=== PATIENT | male | born 1960 | race Caucasian/White ===

== ENCOUNTER → 2023-03-22 | Outpatient (CLI) | payer BC, SELFPAY | END | disposition home or self-care (01) | LOC: LAB 09:16 | PROVIDERS: Referring Provider Nurse Practitioner; Visit Provider Nurse Practitioner | DX: R97.20 Elevated prostate specific antigen [PSA] (principal) | CPT/HCPCS: 36415; 84153 ==

== ENCOUNTER → 2023-03-29 | Outpatient (CLI) | payer BC, SELFPAY ==
--- NOTE | 2023-03-29 | IMM_PTH ---
PATHOLOGY RESULTS PATIENT: ESTER VICTOR LOC: BIPIN U#:[id number] AGE/SX: 62/M ROOM: RE03/29/[address]: Dr. Dorian Sims MD : 1960 BED: DIS: 03/29/2023 SPEC #: [id number] RECD: 03/31/23 13:46 STATUS: TONIA REQ #: [id number] ARELI: 03/29/23 00:[address]: Dorian Sims DEPT: IMMUNOHISTOCHEMISTRY RECD BY: Piedad Fernandez ENTERED: 03/31/23 13:51 SP TYPE: IMMUNO OTHR DR: Dr. London Cummings MD Tissues: PROSTATE RIGHT Procedures: P40 (add) 34BE12 (initial) PHYSICIAN & INSTITUTION [place] [id number] SPECIMEN INFORMATION: Tissue Source: B - Right prostate, [facility] Clinical Info: Elevated PSA Specimen Number: [id number] CPT code: 30765, 59096 METHODOLOGY: Deparaffinized sections of prefer/formalin-fixed tissue or PAP/DQ stained slides are incubated with monoclonal/polyclonal antibodies/oligonucleotide probes. Localization is made via biotin free immunoperoxidase method. Appropriate controls are performed and reacted as expected. Results on target cell population are indicated in the following table: RESULTS: ANTIBODY / CLONE RESULT Block B P40 (BC28) negative 34BE12 (34BE12) negative These tests were developed and their performance characteristics determined by [facility]. They may not have been cleared or approved by the U.S. Food and Drug Administration. The FDA has determined that such clearance or approval is not necessary. The above immunohistochemical/dualISH markers are ordered and reviewed by the Pathologist. INTERPRETATION: B. Right prostate, mid, core biopsy: Adenocarcinoma. BJ:umer 04/01/2023
--- NOTE | 2023-03-29 | PROSBIL_PTH ---
PATHOLOGY RESULTS PATIENT: ESTER VICTOR LOC: BIPIN U#:[id number] AGE/SX: 62/M ROOM: RE03/29/[address]: Dr. Dorian Sims MD : 1960 BED: DIS: 03/29/2023 SPEC #: [id number] RECD: 03/30/23 07:22 STATUS: TONIA LIBBY #: [id number] ARELI: 03/29/23 00:[address]: Dorian Sims DEPT: SURGICAL PATHOLOGY RECD BY: Sheila Bose ENTERED: 03/30/23 07:23 SP TYPE: PROST BX ROGELIO DR: Dr. London Cummings MD Tissues: PROSTATE RIGHT PROSTATE RIGHT PROSTATE RIGHT PROSTATE LEFT PROSTATE LEFT PROSTATE LEFT Procedures: PROSTATE BX HEADER OPERATION: Prostate biopsy PRE-OP DIAGNOSIS: Elevated PSA TISSUE SUBMITTED: A - Right apex, B - Right mid, C - Right base, D - Left apex, E - Left mid, F - Left base MICROSCOPIC DIAGNOSIS A. Right prostate, apex, core biopsy: Prostatic tissue, negative for malignancy. B. Right prostate, mid, core biopsy: Prostatic adenocarcinoma. Kisha grade: 4+4=8 Number of cores involved: 1/2 Proportion of tissue involved: <5% Perineural invasion: Not identified. Greatest tumor length: 0.1 cm Focal high-grade prostatic intraepithelial neoplasia (HGPIN). See comment. C. Right prostate, base, core biopsy: Prostatic adenocarcinoma. Kisha grade: 4+4=8 Number of cores involved: 1/1 Proportion of tissue involved: ~25% Perineural invasion: Not identified. Greatest tumor length: 0.2 cm D. Left prostate, apex, core biopsy: Prostatic tissue, negative for malignancy. E. Left prostate, mid, core biopsy: Prostatic adenocarcinoma. Kisha grade: 5+4=9 Number of cores involved: 2/2 Proportion of tissue involved: ~80% Perineural invasion: Not identified. Greatest tumor length: 1.2 cm F. Left prostate, base, core biopsy: Prostatic adenocarcinoma. Horatio grade: 5+4=9 Number of cores involved: 1/1 Proportion of tissue involved: ~90% Perineural invasion: Not identified. Greatest tumor length: 1.3 cm SJ:umer 03/31/2023 COMMENT B. Immunohistochemistry ([id number]) supports the above diagnosis. Case has been reviewed in consultation with Dr. Whitney who concurs with the above diagnosis. IDC:AM MICROSCOPIC DESCRIPTION Slides are reviewed. GROSS DESCRIPTION A - Received is one container designated prostate, right apex. The specimen consists of one elongated fragment of light rivas-white soft tissue measuring 1.0 cm in length and 0.1 cm in diameter. The specimen is totally submitted in one cassette. B - Received is one container designated prostate, right mid. The specimen consists of two elongated fragments of light rivas-white soft tissue measuring 0.8 and 1.1 cm in length and 0.1 cm in diameter. The specimen is totally submitted in one cassette. C - Received is one container designated prostate, right base. The specimen consists of one elongated fragment of light rivas-white soft tissue measuring 0.8 cm in length and 0.1 cm in diameter. The specimen is totally submitted in one cassette. D - Received is one container designated prostate, left apex. The specimen consists of one elongated fragment of light rivas-white soft tissue measuring 1.7 cm in length and 0.1 cm in diameter. The specimen is totally submitted in one cassette. E - Received is one container designated prostate, left mid. The specimen consists of two elongated fragments of light rivas-white soft tissue each measuring 1.5 cm in length and 0.1 cm in diameter. The specimen is totally submitted in one cassette. F - Received is one container designated prostate, left base. The specimen consists of one elongated fragments of light rivas-white soft tissue measuring 1.4 cm in length and 0.1 cm in diameter. The specimen is totally submitted in one cassette. 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 DETECTED GENOMIC ALTERATIONS: Tier I: Variants of strong clinical significance TP53 p. ([id number]) Tier III: Variants of unknown clinical significance ATR p. ([id number]) IMMUNOTHERAPY BIOMARKERS: Tumor Mutation Kingfisher: Low (2.4 Mutations/MB) Microsatellite Instability: MSI NEGATIVE (1.68%) PERTINENT NEGATIVE RESULTS: The following genes are NEGATIVE for clinically relevant mutations. Mutational hotspots and surrounding exonic regions were interrogated for DNA level point mutations and indels (fusions not assayed). AKT1,AR, ARID1A, MATT, BARD1, BRAF, BRCA1, BRCA2, BRIP1, CCND1, CCNE1, CK12, CHD1, CHEK1, CHEK2, CTNNB1, EPCAM, NWP777Y, FANCA, FANCD2, FANCL, FOXA1, FOXO1, GEN1, HOB13, HRAS, IDH1, MLH1, MRE11A, MSH2, MSH6, MUTYH, MYC, NBN, NTRK1, PALB2, PIK3CA, PMS2, ZME7Y3P, PTEN, RAD51C, RAD51D, RAD54L, RB1, SPOP, TERT Please see complete report in e-chart or EMR
--- OUTSIDE RECORDS SUMMARY | 2023-03-29 15:39 | XMS RPT_ITS | CCD ---
Author Name Unknown Address [address] [place] [address] Organization [facility] Care Team Providers Care Store Detective Name Role Phone Unavailable Primary Care Provider Alvino WHITE MD, BLANCHE Sigala Attending Jordan Melara MD, BLANCHE Sigala Primary Care Jordan kline Problems Problem Classification Problem Date Documented Da te Episodic/Chronic Disorders of lipid metabolism (2 sources) Mixed hyperlipidemia; Translations: [Mixed hyperlipidemia] Onset: 02-03-2023 Chronic Other screening for suspected conditions (not mental disorders or infectious disease) (2 sources) Encounter for screening for malignant neoplasm of prostate; Translations: [Encounter for screening for malignant neoplasm of prostate] Onset: 02-03-2023 Episodic Results Test Name Value Interpretation Reference Range Facil ity Encounters Encounter Date Encounter Type Care Provider Facility Start: 02-03-2023 End: 02-08-2023 ambulatory BLANCHE WHITE MD Facility:A Start: 02-03-2023 End: 02-08-2023 Encounter for general adult medical examination without abnormal findings BLANCHE WHITE MD Facility:A Start: 03-19-2021 End: 03-19-2021 Subsequent hospital visit by physician Dieter Chery [facility] Procedures Date Procedure Procedure Detail Performing Clinician Start: 07-08-2020 Ecg routine ecg w/le ast 12 lds i&r only Payers Date Payer Category Payer Unknown [id number] 1960 Unknown [id number] Social History Date Type Detail Facility Tobacco smoking stat [facility] Tobacco smoking consumption unknown [facility] Start: 1960 Sex Assigned At Not on file [facility] History of Present illness Narrative 03-19-2021 Dieter Chery MD - 03/19/2021 6:21 PM EST Note Date & Type Note Facility 03-19-2021 History of Present illness Narrative DATE OF SERVICE: 03/19/2021 REASON FOR VISIT: Fever, sore throat, fatigue. HISTORY OF PRESENT ILLNESS: This is a 60-year-old male presenting with symptoms of fever, sore throat, and fatigue for the last few days. No exposure to COVID. There is no change in taste or smell. Not much coughing. No chest discomfort. No nausea, vomiting, or diarrhea. Today, he feels better than yesterday. He has not been exposed to COVID-19, and he does not have much concern. His was sick last week, but she was treated with antibiotics. REVIEW OF OTHER SYSTEMS: Normal. ALLERGIES: NKA. MEDICATIONS: Metoprolol. PHYSICAL EXAMINATION: He is awake, alert, not in distress. No dyspnea. He does not look ill. Temperature 98.2, blood pressure 122/78, pulse 98, respirations 16, pulse oximetry 97% on room air. Pain score 0/10. HEENT: Mild congestion. Throat was not injected. Chest clear to auscultation. No crackles, wheezing, rhonchi. Heart: Regular rate and rhythm. ASSESSMENT: Upper respiratory infection. PLAN: Clinical findings were discussed with the patient in detail. I explained to him that I do not see an immediate need for antibiotic right now. He should drink a lot of fluids, Tylenol as needed, take [id number] Coricidin HBP as needed. If there is no improvement or his symptoms progress, I have given a prescription of amoxicillin 875 mg twice a day for 10 days, prescription to keep. If he feels better, he need not to fill. If he does not get better, he can fill the antibiotics. He may also follow up with his doctor as needed. Patient understands and agreed. Dieter Chery MD PP/[id number] SSI File#: [id number] END OF DOCUMENT / CHANGE LOG FOLLOWS Last Edited By [employer]. Signed By Dieter Chery MD #PAWPR Dieter Chery MD #TANIA on 03/27/2021 09:26 ET on 03/27/2021 09:26 ET Revision Number - 2 ^^^ Verified/Reviewed by 03/27/21926 TANIA [facility] PATIENT NAME: ESTER VICTOR [address] [place] MEDICAL REC #: [id number] [place] [address] [facility] REPORT STATCARE PHYSICIAN documented in this encounter [facility] Summary Purpose Family History No Family History Records FoundNo Family History Records Found Advance Directives No Advanced Directives Records FoundNo Advanced Directives Records Found Additional Source Comments Source Comments (unrecognize d section and content) In the event this informatio n is protected by the Federal Confidentiality of Alcohol and Drug Abuse Patient Records regulations: The Federal rules restrict any use of the information to criminally investigate or prosecute any alcohol or drug abuse patient.[facility] the event this information is protected by the Federal Confidentiality of Alcohol and Drug Abuse Patient Records regulations: The Federal rules restrict any use of the information to criminally investigate or prosecute any alcohol or drug abuse patient.[facility] (unrecognized sect ion and content) No Status Records FoundNo Status Records Found INFORMATION SOURCE (unrecogn ized section and content) DATE CREATED AUTHOR AUTHOR'S ORGANIZ ATION 02/08/2023 [facility] ([place]) FOR RECORDS PERTAINING TO PATIENTS WHO ARE OR HAVE BEEN ENROLLED IN A CHEMICAL DEPENDENCY/SUBSTANCEABUSE PROGRAM, SOME INFORMATION MAY BE OMITTED. This clinical summary was aggregated from multiple sources. Caution should be exercised in using it in the provision of clinical care. This summary normalizes information from multiple sources, and as a consequence, information in this document may materially change the coding, format and clinical context of patient data. In addition, data may be omitted in some cases. CLINICAL DECISIONS SHOULD BE BASED ON THE PRIMARY CLINICAL RECORDS. [facility] [employer] [facility]. provides no warranty or guarantee of the accuracy or completeness of information in this document.
== END | disposition home or self-care (01) ==
LOC: LABSPEC 15:24
PROVIDERS: Referring Provider Urology; Visit Provider Urology
DX: R97.20 Elevated prostate specific antigen [PSA] (principal)
CPT/HCPCS: 88305; 88341; 88342; G0416

== ENCOUNTER → 2023-04-06 | Outpatient (CLI) | payer BC, SELFPAY ==
--- NOTE | 2023-04-06 13:04 | CT_ITS ---
STUDY: CT ABDOMEN AND PELVIS WITH CONTRAST REASON FOR EXAM: Male, 62 years old. MALIGNANT NEOPLASM OF PROSTATE RADIATION DOSAGE (If Supplied By Facility): CTDIvol = ( 13.40 ) mGy, DLP = ( 498.71 ) mGycm TECHNIQUE: IV 100mL Isovue-300 was administered. Transaxial images were obtained from the dome of the diaphragm to the symphysis pubis. Multiplanar coronal and sagittal images were reformatted. Individualized Dose Optimization Techniques Were Used For This CT. COMPARISON: No relevant prior comparison study available FINDINGS: The visualized lung bases are unremarkable. The visualized portions of the heart are within normal limits. 7 mm low-density lesion in the right lobe of the liver difficult to characterize and may represent small cyst. No other focal lesions are identified in the liver. Contracted gallbladder without evidence of gallstones Normal spleen. Normal pancreas. Normal bilateral adrenal glands. Normal visualized stomach. Normal in caliber small bowel loops. No evidence of acute diverticulitis. The appendix is visualized and appears normal. There is atherosclerotic calcification of the abdominal aorta with elongation and tortuosity, but without a demonstrated aneurysm. No retroperitoneal adenopathy. Normal right kidney. Normal left kidney. Normal urinary bladder. No pelvic mass. Small bilateral inguinal hernias containing fat. Tiny umbilical hernia containing fat. Vague ill-defined sclerotic lesions in the left inferior pubic ramus and ischium bilaterally concerning for metastases. CT/Abdomen/Pelvis WITH Contrast IMPRESSION: 1. 7 mm low-density lesion in the liver difficult to characterize at this time and may represent small cyst. 2. Vague ill-defined sclerotic lesions in the pelvic bones. Metastases cannot be excluded. 3. Otherwise no focal acute inflammatory process. Electronically Signed: Reese Eng MD at 13:51 EST ,
[2023-04-06 13:40] LABS: CREATININE FINGERSTICK < 1.0 mg/dL (0.70-1.30); EGFR FINGERSTICK > 60.0000 mL/min (>60)
== END | disposition home or self-care (01) ==
PROVIDERS: Referring Provider Urology; Visit Provider Urology
DX: C61 Malignant neoplasm of prostate (principal)
CPT/HCPCS: 74177; Q9967

== ENCOUNTER → 2023-04-12 | Outpatient (CLI) | payer BC, SELFPAY ==
--- NOTE | 2023-04-12 08:51 | NM_ITS ---
CLINICAL: 62-year-old male with history of primary prostate carcinoma. WHOLE BODY 99m Tc MDP RADIONUCLIDE BONE SCINTIGRAPHY COMPARISON: CT of the abdomen-pelvis report 04/06/2023 FINDINGS: Following the intravenous administration of 27.0 mCi of 99m Tc MDP, whole body bone images reveal: 1. Increased radiopharmaceutical concentration is defined in the left acetabulum and inferior pubic ramus, ischium, the right proximal femur, the right anterior ilium and acetabulum, the right scapula, bilateral ribs, the right sacroiliac joint, the left posterior ilium. 2. Facilitated uptake is noted in the sternoclavicular compartment of the left shoulder, bilateral wrist articulations, the lower thoracic spine. 3. The remaining skeletal structures are scintigraphically unremarkable with normal-appearing renal images and urinary bladder activity identified. NM/Bone Scan Whole Body IMPRESSION: 1. 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 2. Degenerative changes are defined in the left shoulder, bilateral wrist articulations and the lower thoracic spine. Electronically Signed: Stephane Gutierrez DO at 10:14 EST ,
--- OUTSIDE RECORDS SUMMARY | 2023-04-12 09:05 | XMS RPT_ITS | CCD ---
Author Name Unknown Address [address] [place] [address] Organization [facility] Care Team Providers Care Management Nurse Rn Name Role Phone Unavailable Primary Care Provider [...] by physician Dieter Chery [facility]: [facility] Procedures Date Procedure Procedure Detail Performing Clinician Start: 07-08-2020 Ecg routine ecg w/le ast 12 lds i&r only Payers Date Payer Category Payer Unknown [id number] 1960 Unknown [id number] Social History Date Type Detail Facility Tobacco smoking stat [facility] Tobacco smoking consumption unknown [facility] Start: 1960 Sex Assigned At Not on [...] lot of fluids, Tylenol as needed, take [id number] Coricidin HBP as needed. If there is [...] Patient understands and agreed. Dieter Chery MD PP/[id number] [facility] File#: [id number] END OF DOCUMENT / CHANGE LOG FOLLOWS Last Edited By [employer]. Signed By Dieter Chery MD #PAWPR Dieter Chery MD #TANIA on 03/27/2021 09:26 ET on 03/27/2021 09:26 ET Revision Number - 2 ^^^ Verified/Reviewed by 03/27/21926 TANIA [facility] PATIENT NAME: ESTER VICTOR [address] [place] MEDICAL REC #: [id number] [place] [address] [facility] REPORT STATCARE PHYSICIAN documented in this encounter [facility] Summary Purpose Family History No Family History [...] or prosecute any alcohol or drug abuse patient.[facility] the event this information is protected by the Federal Confidentiality of Alcohol and Drug Abuse Patient Records regulations: The Federal rules restrict any use of the information to criminally investigate or prosecute any alcohol or drug abuse patient.[facility] (unrecognized sect ion and content) No Status Records FoundNo Status Records Found INFORMATION SOURCE (unrecogn ized section and content) DATE CREATED AUTHOR AUTHOR'S ORGANIZ ATION 02/08/2023 [facility] ([place]) FOR RECORDS PERTAINING TO [...] BE BASED ON THE PRIMARY CLINICAL RECORDS. [facility]. provides no warranty or guarantee of the accuracy or completeness of information in this document.
== END | disposition home or self-care (01) ==
PROVIDERS: Referring Provider Urology; Visit Provider Urology
DX: C61 Malignant neoplasm of prostate (principal)
CPT/HCPCS: 78306; A9503

== ENCOUNTER 2023-05-22 17:31 | Emergency (ER) | payer BC, SELFPAY ==
[2023-05-22 17:32] VITALS: BP 141/76; PULSE 76; RESP 16; TEMP 36; O2SAT 100; BMI 23.3
--- NOTE | 2023-05-22 19:40 | EX.ED.DYSGE1 ---
HPI History of Present Illness Chief Complaint: Allergic Reaction Informant: patient Narrative Narrative: Patient presents secondary to rash. He first noted rash on his extremities 2 days ago. He started a new medication for prostate cancer about 5 weeks ago. He denies any other new medications, soaps, contacts. He spoke with Dr. Sims who advised him to stop taking this new medication. He denies shortness of breath or throat tightness. He states he otherwise feels well. [facility] Medical History (Updated 05/22/23 @ 20:[address] Priya Boyce MD) Prostate CA Home Medications oxycodone 5 mg tablet 5 mg PO Q6H PRN pain 7 days #20 tabs 04/19/23 [Rx Last Taken Unknown] famotidine 40 mg tablet (Pepcid) 40 mg PO DAILY #10 tabs 05/22/23 [Rx Last Taken Unknown] prednisone 20 mg tablet 40 mg (2 x 20 mg) PO DAILY #8 tabs 05/22/23 [Rx Last Taken Unknown] Allergy/AdvReac Type Severity Reaction Status Date / Time No Known Allergies Allergy Verified 05/22/23 17:34 ROS ROS ED Constitutional Constitutional ED: Denies chills or fever(s) Eyes Eyes: Denies change in vision ENT ENT ED: Denies rhinorrhea or sore throat Cardiovascular Cardiovascular: Denies chest pain or palpitations Respiratory/Chest Respiratory/Chest: Denies cough or dyspnea Gastrointestinal Gastrointestinal: Denies abdominal pain, nausea or vomiting Genitourinary Genitourinary ED: Denies dysuria Musculoskeletal Musculoskeletal: Denies back pain or extremity pain Integumentary Reports rash; Denies Abrasions Neurologic Neurologic: Denies headache(s) or weakness Psychiatric Psychiatric: Denies anxiety or depression Allergic/Immunologic Allergic/Immunologic ED: Denies lip swelling or urticaria EXAM Physical Exam Const Vital Signs: 05/22/23 17:32 Temperature 96.8 F L Temperature Source Temporal Pulse Rate 76 Respiratory Rate 16 Blood Pressure 141/76 H Blood Pressure Mean 97 Pulse Ox 100 Oxygen Delivery Method Room Air Positive well nourished and well developed General Appearance ED: well developed HEENT Reports moist mucous membranes Eyes EOMs intact bilaterally Neck no lymphadenopathy Chest Wall inspection of chest normal and palpation of chest normal Resp normal respiratory effort and clear to auscultation bilaterally Cardio regular rate and regular rhythm GI non-tender Palpation: soft Neuro oriented x3 Psych mental status grossly normal Skin Skin Narrative: Red, scattered, slightly raised red rash diffusely over patient's trunk and extremities. No obvious lesions noted on his face. No target lesions or blisters. MDM MDM MDM Narrative Medical decision making narrative: Patient will be given p.o. prednisone, Benadryl, and Pepcid. On repeat evaluation 30 minutes later patient already has some improvement in his rash. He will be given prescription for prednisone and Pepcid. He has Benadryl at home that he can use. He will follow-up with Dr. Sims who reported told the patient that he will start chemotherapy for his prostate cancer. Discharge Plan Triage Chief Complaint: Allergic Reaction ED Provider: Priya Boyce Dx/Rx/DC Orders Clinical Impression: Allergic drug reaction Instructions: ED General Allergic Reactions Prescriptions: New prednisone 20 mg tablet 40 mg PO DAILY Qty: 8 0RF famotidine [Pepcid] 40 mg tablet 40 mg PO DAILY Qty: 10 0RF No Action oxycodone 5 mg tablet 5 mg PO Q6H PRN (Reason: pain) 7 Days Qty: 20 0RF Primary Care Provider: Austin Cummings Referrals: Austin Cummings MD [Primary Care Provider] - Dorian Sims MD [Med Staff - Active Staff] - 5-7 Days Disposition Disposition: Home, Self Care
[2023-05-22] MEDS: predniSONE 20 MG Tablet 60 MG PO (19:46)
[2023-05-22] MEDS: Famotidine 20 MG Tablet 40 MG PO (19:47)
[2023-05-22] MEDS: DiphenhydrAMINE 25 MG Capsule 50 MG PO (19:48)
--- OUTSIDE RECORDS SUMMARY | 2023-05-22 19:55 | XMS RPT_ITS | CCD ---
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 Name Role Phone Unavailable Primary Care Provider Alvino WHITE MD, BLANCHE Sigala Attending Jordan Melara MD, BLANCHE Sigala Primary Care Jordan kline Unavailable Primary Care Provider Alvino blackman Problems Problem Classification Problem Date Documented Da te Episodic/Chronic Administrative/social admission (1 source) Patient encounter status; Translations: [Counseling, unspecified] 05-21-2023 Episodic Cancer of prostate (1 source) Malignant tumor of prostate; Translations: [Malignant neoplasm of prostate] 05-20-2023 Chronic Disorders of lipid metabolism (2 sources) Mixed [...] Date Encounter Type Care Provider Facility Start: 05-20-2023 Patient encounter procedure Blanche Enciso MD Work Phone: Hematology/Oncology Procedures Date Procedure Procedure Detail Performing Clinician Start: 07-08-2020 Ecg routine ecg w/le ast 12 lds i&r only Payers Date Payer Category Payer Unknown [id number] 1960 Unknown [id number] Social History Date Type Detail Facility Tobacco smoking stat [facility] Tobacco smoking consumption unknown [facility] Start: 1960 Sex Assigned At Not on file [facility] Gender identity Not on file [facility] inic Progress note 05-20-2023 Note Date & Type Note Facility 05-20-2023 Note HNO ID: [id number] Author: BLANCHE ENCISO MD Service: ? Author Type: Physician Type: Progress Notes Filed: 05/20/2023 10:38 Note Text: Dear Mr. Victor: It was a pleasure meeting with you virtually today. To briefly review your story: You had been followed for an elevated PSA of 5.78 ng/mL, but repeat PSA had jumped up to 17.6 ng/mL. Biopsy on 03/29/23 showed prostate adenocarcinoma up to [place] 5+4 disease (Grade Group 5). CT scan of abdomen and pelvis on 04/06/23 showed some possible spots on the left inferior pubic ramus and ischium. Bone scan showed multiple bone spots, including in the left hip area, pelvic bones, ribs, right shoulder blade. You were started on androgen deprivation with leuprolide (Eligard) as well as enzalutamide (Xtandi). A patient with this history would have a diagnosis consistent with metastatic hormone sensitive prostate cancer. We discussed that this is generally considered incurable, though treatable. Although it can be fatal, we discussed typical survival outcomes with appropriate treatment. Androgen deprivation therapy (ADT) is the backbone of all systemic therapy. This can be administered in many different ways, including LHRH agonist (e.g. leuprolide), LHRH antagonist (e.g. degarelix, relugolix), or bilateral orchiectomy. The current standard of care is ADT + novel hormonal agent (such as apalutamide enzalutamide, or abiraterone acetate + prednisone) or docetaxel chemotherapy. ADT + any of these agents have demonstrated improved overall survival (OS) in high-quality randomized controlled trials (RCTs). There are no ipju-fb-lbcu data suggesting superiority of one approach over another, so decision is made considers toxicity profile, patient preference, and physician preference. More recently, data from PEACE-01 and ARASENS trials have demonstrated improved survival over ADT + docetaxel when abiraterone acetate (PEACE-01) or darolutamide (ARASENS) are added to ADT + docetaxel. We do not know the relative contribution of docetaxel at this time, but this does make the case for the triplet to become a potential aggressive treatment option for upfront treatment. For a patient like you since you have already started an appropriate treatment with ADT and enzalutamide, I would continue with this. I would also run somatic genomic sequencing on the prostate biopsy and consider germline testing to see if there are any inheritable predispositions to cancer. If a patient like you were to walk into my office, I would recommend: 1) continuing ADT + enzalutamide 2) next generation sequencing on prostate biopsy 3) considering germline testing and speaking with genetic counselor [facility] History of Present illness Narrative 05-20-2023 Blanche Enciso MD - 05/20/2023 9:27 AM EST Note Date & Type Note Facility 05-20-2023 History of Presen t illness Narrative Dear Liliana Eulogio: It was a pleasure meeting with you virtually today. To briefly review your story: You had been followed for an elevated PSA of 5.78 ng/mL, but repeat PSA had jumped up to 17.6 ng/mL. Biopsy on 03/29/23 showed prostate adenocarcinoma up to [place] 5+4 disease (Grade Group 5). CT scan of abdomen and pelvis on 04/06/23 showed some possible spots on the left inferior pubic ramus and ischium. Bone scan showed multiple bone spots, including in the left hip area, pelvic bones, ribs, right shoulder blade. You were started on androgen deprivation with leuprolide (Eligard) as well as enzalutamide (Xtandi). A patient with this history would have a diagnosis consistent with metastatic hormone sensitive prostate cancer. We discussed that this is generally considered incurable, though treatable. Although it can be fatal, we discussed typical survival outcomes with appropriate treatment. Androgen deprivation therapy (ADT) is the backbone of all systemic therapy. This can be administered in many different ways, including LHRH agonist (e.g. leuprolide), LHRH antagonist (e.g. degarelix, relugolix), or bilateral orchiectomy. The current standard of care is ADT + novel hormonal agent (such as apalutamide enzalutamide, or abiraterone acetate + prednisone) or docetaxel chemotherapy. ADT + any of these agents have demonstrated improved overall survival (OS) in high-quality randomized controlled trials (RCTs). There are no pmhi-xb-azku data suggesting superiority of one approach over another, so decision is made considers toxicity profile, patient preference, and physician preference. More recently, data from PEACE-01 and ARASENS trials have demonstrated improved survival over ADT + docetaxel when abiraterone acetate (PEACE-01) or darolutamide (ARASENS) are added to ADT + docetaxel. We do not know the relative contribution of docetaxel at this time, but this does make the case for the triplet to become a potential aggressive treatment option for upfront treatment. For a patient like you since you have already started an appropriate treatment with ADT and enzalutamide, I would continue with this. I would also run somatic genomic sequencing on the prostate biopsy and consider germline testing to see if there are any inheritable predispositions to cancer. If a patient like you were to walk into my office, I would recommend: 1) continuing ADT + enzalutamide 2) next generation sequencing on prostate biopsy 3) considering germline testing and speaking with genetic counselor documented in this encounter [facility] History of Present illness Narrative 05-07-2023 Nina Pardo - 05/07/2023 1:49 PM Ester Guido RN - 05/07/2023 12:56 PM EST Note Date & Type Note Facility 05-07-2023 History of Presen t illness Narrative 05/13 Dr. Flower MR: need to request - ANKITA tess for facility yesterday, office closed on Fridays - will try Wednesday - RECEIVED 05/16 [facility] MR: UMA PARTIAL (MISSING OV NOTES) 12:40p - OV notes not available from [place]. If OV notes from Dr. Flower are what we need, his ph. [phone]. Advised MW. 05/12 [facility] MR: UMA PARTIAL (MISSING OV NOTES) 8:54a - ph [phone] - LVM for Stacia. She is out of office until tomorrow. 05/10 [facility] MR: SNEHAL'Dipesh PARTIAL (MISSING OV NOTES) 11:22a - spoke w/ JOSE - no OV notes to be released at hospital, to be released from [place] JOSE (physician notes), fax [phone], ph [phone]. Refaxed. 05/07 [facility] MR/RAD: requested/[id number] - IMGS PUSHED 05/10 Images from the original note were not included. Virtual Second Opinions by [facility] Specific Physician Requested by patient: video glitchy. PATIENT INFORMATION: Patient Name: Ester Victor : 1960 [facility] Chief Complaint: Stage IV Prostate Cancer that has spread to the bones. Brief Medical History: 62 yo male had yearly evaluation in February, elevated PSA, referred to Urology, was seen about 5 weeks later. PSA was above 17. CT, PET./bonescan orders, biopsy taken. Shot of Eliguard, and now on Xtandi 160 mg Xtandi, Eliguard shot every three months. Is being seen on 06/02 for follow up. To have PSA to be done prior to visit. Biopsy, CT, bone scan, MRI Questions related to second opinion: 1. Review from [facility], should I have already met with the oncology team? 2. What treatment would [facility] recommend at this time? Facility/Records to request Biopsy, then CT then full body bone scan. [facility] Dr. Dorian Sims MD [address] [place] [phone] Fax-[phone]- Last ov note [facility] [address] [id number] MR - . MR [id number] 02/2023-present pathology report 02/2023-present imaging report 02/2023-present PSA lab report 02/2023-present Urology OV notes 02/2023-present, CT scan and Bone scan/PET scan Rad ph Rad fax documented in this encounter [facility] History of Present illness Narrative 03-19-2021 Dieter [...] lot of fluids, Tylenol as needed, take [id number] Coricidin HBP as needed. If there is [...] Patient understands and agreed. Dieter Chery MD PP/[id number] [facility] File#: [id number] END OF DOCUMENT / CHANGE LOG FOLLOWS Last Edited By Elec. Signed By Dieter Chery MD #PAWPR Dieter Chery MD #PAWPR on 03/27/2021 09:26 ET on 03/27/2021 09:26 ET Revision Number - 2 ^^^ Verified/Reviewed by 03/27/21926 [facility] PATIENT NAME: ESTER VICTOR [address] MEDICAL REC #: [id number] [place] [address] [facility] REPORT STATCARE PHYSICIAN documented in this encounter [facility] Evaluation note Note Date & Type Note Facility documented in this encounter [facility] Evaluation note Note Date & Type Note Facility documented in this encounter [facility] Summary Purpose Family History No Family History Records FoundNo Family History Records FoundNo Family History Records Found Advance Directives No Advanced Directives Records FoundNo Advanced Directives Records FoundNo Advanced Directives Records Found Additional Source Comments Source Comments (unrecognize d section and content) In the event this informatio n is protected by the Federal Confidentiality of Alcohol and Drug Abuse Patient Records regulations: The Federal rules restrict any use of the information to criminally investigate or prosecute any alcohol or drug abuse patient.[facility] the event this information is protected by the Federal Confidentiality of Alcohol and Drug Abuse Patient Records regulations: The Federal rules restrict any use of the information to criminally investigate or prosecute any alcohol or drug abuse patient.[facility] the event this information is protected by the Federal Confidentiality of Alcohol and Drug Abuse Patient Records regulations: The Federal rules restrict any use of the information to criminally investigate or prosecute any alcohol or drug abuse patient.[facility] the event this information is protected by the Federal Confidentiality of Alcohol and Drug Abuse Patient Records regulations: The Federal rules restrict any use of the information to criminally investigate or prosecute any alcohol or drug abuse patient.[facility] (unrecognized sect ion and content) No Status Records FoundNo Status Records FoundNo Status Records Found INFORMATION SOURCE (unrecogn ized section and content) DATE CREATED AUTHOR AUTHOR'S ORGANIZ ATION 02/08/2023 [facility] ([place]) DATE CREATED AUTHOR AUTHOR'S ORGANIZ ATION 05/21/2023 [facility] Reason for Visit (unrecogniz ed section and content) FOR RECORDS PERTAINING TO PATIENTS WHO ARE [...] BE BASED ON THE PRIMARY CLINICAL RECORDS. [employer] [facility]. provides no warranty or guarantee of the accuracy or completeness of information in this document.
[2023-05-22 20:30] VITALS: BP 130/76; PULSE 78; RESP 16; TEMP 36.8; O2SAT 98
== END 2023-05-22 20:32 | disposition home or self-care (01) ==
PROVIDERS: Emergency Provider Emergency Medicine; Visit Provider Emergency Medicine
DX: T78.40XA Allergy, unspecified, initial encounter (principal); C61 Malignant neoplasm of prostate; X58.XXXA Exposure to other specified factors, initial encounter
CPT/HCPCS: 99283

== ENCOUNTER → 2023-05-24 | Outpatient (CLI) | payer BC, SELFPAY ==
--- OUTSIDE RECORDS SUMMARY | 2023-05-24 09:45 | XMS RPT_ITS | CCD ---
Author Name Unknown Address [address] [place] [address] Organization [facility] Care Team Providers Care Cherry Dipper Name Role Phone Unavailable Primary Care Provider Alvino WHTIE MD, BLANCHE Sigala Attending Jordan Melara MD, [...] only Payers Date Payer Category Payer Unknown [id number] 1960 Unknown [id number] Social History Date Type Detail Facility Tobacco smoking stat [facility] Tobacco smoking consumption unknown [facility] Start: 1960 Sex Assigned At Not on file [facility] Gender identity Not on file [facility]ic Progress note 05-20-2023 Note Date & Type Note Facility 05-20-2023 Note HNO ID: [id number] Author: BLANCHE ENCISO MD Service: ? Author Type: Physician Type: Progress Notes Filed: 05/20/2023 10:38 Note Text: Dear Mr. Victor: It was a pleasure meeting with you virtually today. To briefly review your story: You had been followed for an elevated PSA of 5.78 ng/mL, but repeat PSA had jumped up to 17.6 ng/mL. Biopsy on 03/29/23 showed prostate adenocarcinoma up to [place] 5+4 disease (Grade Group 5). CT scan [...] randomized controlled trials (RCTs). There are no dgdq-mq-ijso data suggesting superiority of one approach over [...] germline testing and speaking with genetic counselor [facility] History of Present illness Narrative 05-20-2023 Blanche [...] randomized controlled trials (RCTs). There are no anec-mg-ctae data suggesting superiority of one approach over [...] with genetic counselor documented in this encounter [facility] History of Present illness Narrative 05-07-2023 Nina Pardo - 05/07/2023 1:49 PM Ester Guido RN - 05/07/2023 12:56 PM EST Note Date & Type Note Facility 05-07-2023 History of Presen t illness Narrative 05/13 Dr. Flower MR: need to request - ANKITA tess for facility yesterday, office closed on Fridays - will try Wednesday - RECEIVED 05/16 [facility] MR: UMA PARTIAL (MISSING OV NOTES) 12:40p - OV notes not available from [place]. If OV notes from Dr. Flower are what we need, his ph. [phone]. Advised MW. 05/12 [facility] MR: UMA PARTIAL (MISSING OV NOTES) 8:54a - ph [phone] - LVM for Stacia. She is out of office until tomorrow. 05/10 [facility] MR: SNEHAL'Dipesh PARTIAL (MISSING OV NOTES) 11:22a - spoke w/ JOSE - no OV notes to be released at hospital, to be released from [place] JOSE (physician notes), fax [phone], ph [phone]. Refaxed. 05/07 [facility] MR/RAD: requested/[id number] - IMGS PUSHED 05/10 Images from the original note were not included. Virtual Second Opinions by [facility] Specific Physician Requested by patient: video [...] related to second opinion: 1. Review from [facility], should I have already met with the oncology team? 2. What treatment [facility] at [facility]? Facility/Records to request Biopsy, then CT then full body bone scan. [facility] Dr. Dorian Sims MD [address] [place] [phone] Fax-[phone]- Last ov note [facility] [address] [id number] MR - . MR [id number] 02/2023-present pathology report 02/2023-present imaging report 02/2023-present PSA lab report 02/2023-present Urology OV notes 02/2023-present, CT scan and Bone scan/PET scan Rad ph Rad fax documented in this encounter [facility] History of Present illness Narrative 03-19-2021 [...] lot of fluids, Tylenol as needed, take [id number] Coricidin HBP as needed. If there is [...] Patient understands and agreed. Dieter Chery MD PP/[id number] [facility] File#: [id number] END OF DOCUMENT / CHANGE LOG FOLLOWS Last Edited By Elec. Signed By Dieter Chery MD #PAWPR Dieter Chery MD #PAWPR on 03/27/2021 09:26 ET on 03/27/2021 09:26 ET Revision Number - 2 ^^^ Verified/Reviewed by 03/27/21926 [facility] PATIENT NAME: ESTER VICTOR [address] [facility] [address] MEDICAL REC #: [id number] [place] [address] [facility] REPORT STATCARE PHYSICIAN documented in this encounter [facility] Evaluation note Note Date & Type Note Facility documented in this encounter [facility] Evaluation note Note Date & Type Note Facility documented in this encounter [facility] Summary Purpose Family History No Family [...] or prosecute any alcohol or drug abuse patient.[facility] the event this information is protected by the Federal Confidentiality of Alcohol and Drug Abuse Patient Records regulations: The Federal rules restrict any use of the information to criminally investigate or prosecute any alcohol or drug abuse patient.[facility] the event this information is protected by the Federal Confidentiality of Alcohol and Drug Abuse Patient Records regulations: The Federal rules restrict any use of the information to criminally investigate or prosecute any alcohol or drug abuse patient.[facility] the event this information is protected by the Federal Confidentiality of Alcohol and Drug Abuse Patient Records regulations: The Federal rules restrict any use of the information to criminally investigate or prosecute any alcohol or drug abuse patient.[facility] (unrecognized sect ion and content) No Status Records FoundNo Status Records FoundNo Status Records Found INFORMATION SOURCE (unrecogn ized section and content) DATE CREATED AUTHOR AUTHOR'S ORGANIZ ATION 02/08/2023 [facility] ([place]) DATE CREATED AUTHOR AUTHOR'S ORGANIZ ATION 05/21/2023 [facility] Reason for Visit (unrecogniz ed section and [...] BE BASED ON THE PRIMARY CLINICAL RECORDS. [employer] [facility]. provides no warranty or guarantee of the accuracy or completeness of information in this document.
[2023-05-24 10:36] LABS: PSA,Total- Diagnostic 1.94 ng/mL (0.0-4.0)
== END | disposition home or self-care (01) ==
LOC: LAB 09:24
PROVIDERS: Referring Provider Urology; Visit Provider Urology
DX: C61 Malignant neoplasm of prostate (principal)
CPT/HCPCS: 36415; 84153

== ENCOUNTER → 2023-06-09 | Outpatient (CLI) | payer BC, SELFPAY ==
--- NOTE | 2023-06-09 17:35 | RAD_ITS ---
EXAM: XR CHEST, 2 VIEWS CLINICAL INDICATION: STAGING METS PROSTATE CANCER TECHNIQUE: Frontal and lateral views of the chest. COMPARISON: No relevant prior studies available. FINDINGS: LUNGS AND PLEURAL SPACES: No significant abnormality. No consolidation or edema. No pneumothorax. No effusion. HEART: No significant abnormality. Cardiac silhouette not enlarged. MEDIASTINUM: Central airways and mediastinal contour are unremarkable. BONES/JOINTS: No significant abnormality. No acute fracture. No distinct evidence of sclerotic or lytic metastases in the visualized axial and appendicular skeletal structures. SOFT TISSUES: No significant abnormality. RAD/Chest PA and Lateral IMPRESSION: 1. No distinct evidence of sclerotic or lytic metastases in the visualized axial and appendicular skeletal structures. 2. No acute pathology in the chest is otherwise identified. Electronically Signed: Edwin Chan DO at 23:59 EDT ,
== END | disposition home or self-care (01) ==
LOC: RAD 17:31
PROVIDERS: Referring Provider Internal Medicine Hematology & Oncology; Visit Provider Internal Medicine Hematology & Oncology
DX: C61 Malignant neoplasm of prostate (principal); C79.51 Secondary malignant neoplasm of bone
CPT/HCPCS: 71046

== ENCOUNTER 2023-06-21 05:47 | Day surgery (SDC) | payer BC, SELFPAY ==
[2023-06-21 06:50] VITALS: BP 105/73; PULSE 66; RESP 16; TEMP 35.9; O2SAT 100; BMI 22.7
[2023-06-21] MEDS: Lactated Ringers 1,000 ML 15 ML IV (06:52)
--- NOTE | 2023-06-21 07:06 | PCM.HP.BLA ---
History and Physical Date of Admission: 06/21/23 Date of Service: 06/16/23 MR#: [id number] Acct: [id number] Name: ESTER VICTOR Rep #: [id number] : 1960 Provider: Dr. Lacy Buck MD Age/Sex: 63/M Location: [facility] Status: Signed Intake Vital Signs 06/08/2414:44 06/14/2407:47 06/15/2413:52 Height 5 ft 10 in 5 ft 10 in 5 ft 10 in Weight: 161 lb 5 oz 161 lb BMI 23.1 23.1 BP 113/78 132/84 H Blood Pressure Location Lt brachial Rt brachial Position Sitting Sitting Respiration 18 16 Pulse 76 Pulse Source Monitor Temp 98.4 F Pulse Oximetry (%) 100 Oxygen Delivery Method room air Intake Visit Reasons: PORT PLACEMENT Chief Complaint: Metastatic prostate cancer/port placement Straightener And Aligner Required: No Is patient in pain?: No Allergies enzalutamide [From Xtandi] Allergy (Severe, Verified 06/16/23 14:52) Rash Medications ascorbic acid (vitamin C) 1,000 mg capsule 1 g PO Q6H 06/09/23 [History Confirmed 06/16/23] calcium carbonate 600 mg calcium (1,500 mg) tablet 600 mg PO DAILY 06/09/23 [History Confirmed 06/16/23] cholecalciferol (vitamin D3) 125 mcg (5,000 unit) capsule 125 mcg PO DAILY 06/09/23 [History Confirmed 06/16/23] metoprolol succinate 25 mg tablet,extended release 24 hr 12.5 mg PO BID 06/09/23 [History Confirmed 06/16/23] zinc gluconate 50 mg tablet 50 mg PO DAILY 06/09/23 [History Confirmed 06/16/23] dexamethasone 4 mg tablet 8 mg (2 x 4 mg) PO .COMPLEX #12 tabs 06/14/23 [Rx Confirmed 06/16/23] lidocaine-prilocaine 2.5 %-2.5 % topical cream 1 applic topical ONCE PRN port access 30 days #30 grams 06/14/23 [Rx Confirmed 06/16/23] ondansetron 8 mg disintegrating tablet 8 mg PO Q8H PRN nausea and vomiting #30 tabs 06/14/23 [Rx Confirmed 06/16/23] PFSH Medical History Encounter for education Prostate CA Secondary malignant neoplasm of bone Ventricular premature depolarization Surgical History History of prostate biopsy History of shoulder surgery Family History Brother Cancer prostate, kidney Myocardial infarction, Onset Age: 66Mother Colon cancerSister Multiple sclerosisFather Myocardial infarction, Onset Age: 62 Social History household members: spouse Smoking Status: Former smoker Tobacco: How many years used: 20 alcohol intake: former details: was drinking 3-4 drinks a day until New '2023 substance use type: does not use what type of physical activity do you participate in: walking, running and weight training frequency: 3-4 times per week HPI HPI HPI: 63-year-old male presenting for port placement due to metastatic prostate cancer. Patient is planned to have chemotherapy done on June 22. ROS General General: No weight change, appetite, fatigue, colon cancer, breast cancer or weakness HEENT HEENT: No difficulty swallowing, eye injury, eye surgery, swollen glands or hoarseness Endo Endocrine: No thyroid disease, diabetes mellitus, thyroid cancer, Hair loss, heat intolerance or cold intolerance Skin Skin: No rash or changing moles Breast Breast: No left breast lump, right breast lump, nipple discharge, breast pain, abnormal mammogram, abnormal US or breast enlargement Musc Musculoskeletal: No back problems, arthritis, rheumatoid arthritis, gout or joint pain Cardio Cardiovascular: Yes murmur; No pacemaker, heart disease, atrial fibrillation, high blood pressure, heart attack, heart stent, palpitations, shortness of breat with exertion or chest pain Psych Psychiatric: No depression, anxiety or hearing voices Resp Respiratory: No shortness of breath, No sleep apnea, No cough, No COPD, No asthma, No emphysema and No wheezing Gastro Gastrointestinal: No abdominal pain, No nausea or vomiting, No diarrhea, No constipation, No blood in stool, No acid reflux, No hemorrhoids, No ulcers, No gallbladder problem and No black,tarry stools Darian Hematologic: No blood thinners, No blood disorders, No bleeding, No anemia and No blood clots Neuro Neurologic: No system reviewed and no additional complaints, except as documented, No as per HPI, No abnormal gait, No abnormal hearing, No abnormal movements, No abnormal speech, No behavioral changes, No burning sensations, No confusion, No convulsions, No disequilibrium, No dizziness, No localized weakness, No frequent falls, No headache(s), No lack of coordination, No loss of vision, No memory loss, No numbness, No other visual disturbances, No radicular pain, No restless legs, No sensory deficit, No syncope, No tingling, No tremor(s), No weakness and No other Exam Const General: cooperative, healthy appearing, comfortable and no acute distress HENDC Head: normocephalic and atraumatic Neck Neck: supple Chest Other: Palpation of bilateral upper chest normal Resp Effort & Inspection: normal respiratory effort Cardio Rate: regular rate GI Inspection: non-distended Palpation: soft Skin General: no rashes or lesions noted Neuro General: CN's II-XI intact bilaterally Extrem General: normal to inspection Psych Mental Status: mental status grossly normal Attitude: cooperative Assessment and Plan Assessment and Plan (1) Encounter for fitting and adjustment of vascular catheter: Status: Acute (2) Prostate CA: Status: Acute (3) Secondary malignant neoplasm of bone: Status: Acute Plan I have discussed above with the patient- Port-a-Cath placement. Right possible left IJ Patient has been counseled as to the risks/benefits of the procedure. I have explained the risks of the surgery, including but not limited to: infection, bleeding, injury to any blood vessels/nerves, injury to lungs (such as pneumothorax or hemothorax and need for chest tube), not having any access, nonfunctioning of port due to thrombosis, infection of port, etc. the patient understands and agrees to proceed. I have answered all the patient's questions to the patient?s satisfaction and the patient has no further questions. Lacy Buck M.D. Pager: [phone] [facility] [address] [place] [address], [address] [place] [id number] Office: [phone] Coding Level of Care Code Off vis,new,level 3 Diagnoses Encounter for fitting and adjustment of vascular catheter Z45.2 Prostate CA C61 Secondary malignant neoplasm of bone C79.51 06/17/23 1246 <Electronically signed by Lacy Buck MD> Date Lacy Buck MD
[2023-06-21] MEDS: Cefazolin 2 GM in 0.9% Normal Saline (100mL Bag) 100 ML IV (07:24)
[2023-06-21] MEDS: Bupivacaine Mpf 0.5% 30 ML VIAL (07:38)
[2023-06-21] MEDS: Lidocaine 1% /Epi 1:100 (20ml) 20 ML Vial (07:38)
--- NOTE | 2023-06-21 08:01 | PCM.OPRPT ---
Report of Operation Date of Procedure: 06/21/23 Pre-Operative Diagnosis: z45.2, metastatic prostate cancer Post-Operative Diagnosis: Same Surgery/Procedure Performed:: Placement of right IJ port Use of fluoroscopy Use of fluoroscopy Surgeon: Lacy Buck Type of Anesthesia: Local MAC Anesthesiologist: Toribio Lopes Special Medications: Ancef 2 g IV x 1 Specimen's removed: none Estimated Blood Loss (mL): < 10 cc Description of Procedure: After informed consent was given, the patient was brought to the operating room and placed in the supine position. Appropriate time out protocol was followed. Patient was then given IV conscious sedation for anesthesia. The patient's right upper chest and neck were then prepped with a surgical skin preparation and sterile surgical drapes were placed. After proper landmarks were ascertained, the skin at the upper right chest area was then infiltrated with 1:1 mixture of 1% lidocaine with epinephrine and 0.5% marcaine. A needle trocar was then inserted into the right internal jugular vein with ultrasound guidance-multiple vessels were viewed with u/s and the right IJ was chosen-- and there was good aspiration of venous blood. A wire was then threaded into the needle trocar and this was visualized under fluoroscopy to ensure that the wire was in the superior vena cava. Once this was done, then the needle trocar was removed. A small skin lion was made with an 11 blade knife at the wire entrance site. The dilator with the introducer sheath attached was then placed over the wire into the right internal jugular vein via the Seldinger technique and this was visualized under fluoroscopy. The dilator and sheath were in proper position as visualized by fluoroscopy. A subcutaneous pocket was then created caudad to the catheter insertion site. A transverse skin incision was made after the skin and subcutaneous tissues were infiltrated with local anesthetic. Blunt dissection was then used to create a space large enough for placement of the subcutaneous port. The catheter was then tunneled into the subcutaneous pocket. The wire and dilator were then removed. The catheter was then threaded into the introducer sheath and was positioned with its tip at the junction of the superior vena cava and the right atrium as visualized under fluoroscopy. The excess catheter was transected. The catheter was then attached to the subcutaneous port using manufacturers guidelines. The catheter was flushed with a heparin saline mixture prior to placement. Hemostasis was carefully controlled with electrocautery. The port was sutured to the subcutaneous fascia using 2-0 Vicryl suture at two sites. The port was then placed in the subcutaneous pocket. The incision were reapproximated with interrupted subdermal 3-0 vicryl sutures. The skin was reapproximated with 3-0 nylon suture in a interrupted fashion. Steristrips were used for reinforcement of the skin closure at IJ insertion site and a sterile opsite dressings were applied. The patient tolerated the procedure well. Implants Used: [employer] PowerPort isp M.R.I. 6Fr Lot [id number] [id number] Complications none
--- NOTE | 2023-06-21 08:03 | DCINST_ITS ---
Discharge Instructions Procedure Port-A-Cath Diet Discharge Diet: Light diet - advance as tolerated Activity May shower in (days): 5 (Keep port site clean and dry x5 days. Neck incision okay to get wet after 1 day. Okay to lower shower and upper sponge bath. OR okay to taper off port site with a Ziploc bag to shower) Lifting Restrictions: No lifting > 15 pounds for 3 days with the arm on the side of the port Dressing / Incision Call your doctor if your incision/area has: Continuous Slow Oozing, Sudden Increased Bleeding, Increased Pain/ Swelling, Increased Redness, Foul Smelling Discharge and Swelling at the incision site Call your doctor if you observe: Fever of 101 or Higher Change Dressing in: 2 days (2-3 days- port site; ok to remove neck opsite in 1 day) Follow Up Care Please Follow Up With: Lacy Buck MD When: In 10 days for permanent suture removal?call office for appointment Test Results: Test results from this visit will be discussed in further detail at your follow- up appointment, if applicable. Discharge Plan Admission Attending Provider: Lacy Buck Primary Care Provider: Austin Cummings Discharge Orders/Prescriptions Prescriptions: Continued cholecalciferol (vitamin D3) 125 mcg (5,000 unit) capsule 125 mcg PO DAILY ascorbic acid (vitamin C) 1,000 mg capsule 1 g PO Q6H Hold Instructions: Home Medication placed on hold at Doctor's office calcium carbonate 600 mg calcium (1,500 mg) tablet 600 mg PO DAILY zinc gluconate 50 mg tablet 50 mg PO DAILY Hold Instructions: Home Medication placed on hold at Doctor's office metoprolol succinate 25 mg tablet extended release 24 hr 12.5 mg PO BID ondansetron 8 mg tablet,disintegrating 8 mg PO Q8H PRN (Reason: nausea and vomiting) Qty: 30 2RF lidocaine-prilocaine 2.5-2.5 % cream 1 applic topical ONCE PRN (Reason: port access) 30 Days Qty: 30 2RF dexamethasone 4 mg tablet 8 mg PO .COMPLEX Qty: 12 5RF Rx Instructions: 8 mg orally twice daily ONLY the day before, the day of, and the day after chemotherapy Referrals / Follow Up: Austin Cummings MD [Primary Care Provider] - Disposition Disposition (needs filled in before D/C Order can be placed): Home, Self Care
[2023-06-21 08:05] VITALS: BP 100/60; BP 105/73; PULSE 76; RESP 16; TEMP 36.1; O2SAT 100
[2023-06-21 08:10] VITALS: BP 100/66; BP 105/73; PULSE 82; RESP 16; O2SAT 100
--- NOTE | 2023-06-21 08:10 | RAD_ITS ---
STUDY: X-RAY CHEST REASON FOR EXAM: Male, 63 years old. Port -- PORTABLE PACU TECHNIQUE: Single AP portable view of the chest. COMPARISON: Comparison is made with prior study dated June 09, 2023. FINDINGS: A right-sided portacatheter has been placed. The tip is at the junction of the superior vena cava and right atrium. Hyperinflation. The lungs are clear and expanded. There is no demonstrated pleural abnormality. Normal size heart. Normal mediastinum and justice. Normal visualized pulmonary arteries. Normal visualized aortic arch and descending thoracic aorta. Normal visualized thoracic spine. Normal visualized ribs, clavicles, and shoulders. There is no demonstrated abnormality of the visualized soft tissue structures of the upper abdomen. RAD/CXR for Line Placement IMPRESSION: The tip of the right-sided Port-A-Cath is at the junction of the superior vena cava and right atrium. Electronically Signed: Zak Moss MD at 8:42 EDT ,
[2023-06-21 08:15] VITALS: BP 103/71; BP 105/73; PULSE 72; RESP 16; TEMP 36.1; O2SAT 100
[2023-06-21 08:38] VITALS: BP 105/73
== END 2023-06-21 08:59 | disposition home or self-care (01) ==
LOC: SDC 05:47 → AC 05:47
PROVIDERS: Visit Provider Surgery
PROC: (CPT 36561; principal; 2023-06-21 07:15)
DX: Z45.2 Encounter for adjustment and management of vascular access device (principal); C79.51 Secondary malignant neoplasm of bone; C61 Malignant neoplasm of prostate; Z87.891 Personal history of nicotine dependence; Z79.899 Other long term (current) drug therapy
CPT/HCPCS: 36561; 00532; 71045; 77001; J7120; J2405

== ENCOUNTER 2023-10-19 07:26 | Day surgery (SDC) | payer BC, SELFPAY ==
[2023-10-19] VITALS (7 sets, daily range): BP systolic 80–132; BP diastolic 52–117; PULSE 70–80; RESP 16–20; TEMP 36.3–36.6; O2SAT 99–100; BMI 22.6
--- NOTE | 2023-10-19 07:55 | HP.PCM_ITS ---
[facility] - General General Date of Service: 10/19/23 HPI Narrative ESTER VICTOR, is a 63 M who presents for screening colonoscopy due to history of colon polyps. Patient's last colonoscopy was about 6 years ago normal per patient told a 5-year recall. Patient mom had colon cancer in her 60s and had 2 colectomies lived until her 90s. Patient has been having chemotherapy for metastatic prostate cancer to the bone. Last last chemotherapy treatment over 2 months ago waiting on a bone scan. Patient states he has bowel moods mostly daily denies any blood. Denies any chronic abdominal pain/nausea/vomiting/reflux. [facility] Medical History Family history of colon cancer in mother Hx of colonic polyps Encounter for chemotherapy management Alcohol use Arthritis Former smoker History of edema History of echocardiogram History of stress test Cardiology follow-up encounter History of irregular heartbeat Encounter for education Secondary malignant neoplasm of bone Ventricular premature depolarization Prostate CA Home Medications ?Medication ?Instructions ?Recorded ?Last Taken ?Type metoprolol succinate 25 mg 12.5 mg PO BID 06/09/23 06/21/23 History tablet,extended release 24 hr dexamethasone 4 mg tablet 8 mg (2 x 4 mg) PO .COMPLEX #12 06/14/23 Unknown Rx tabs lidocaine-prilocaine 2.5 %-2.5 % 1 applic topical ONCE PRN port 06/14/23 Unknown Rx topical cream access 30 days #30 grams ondansetron 8 mg disintegrating 8 mg PO Q8H PRN nausea and 06/14/23 Unknown Rx tablet vomiting #30 tabs darolutamide 300 mg tablet (Nubeqa) 600 mg PO BID 07/01/23 Unknown History Allergy/AdvReac Type Severity Reaction Status Date / Time enzalutamide (From Xtandi) Allergy Severe Rash Verified 10/14/23 09:13 adhesive tape Allergy Mild Rash Verified 10/14/23 09:13 Family History Brother Cancer prostate, kidney Myocardial infarction, Onset Age: 66 Mother Colon cancer Dx in 60's, Partial Colectomy x2 Sister Multiple sclerosis Father Myocardial infarction, Onset Age: 62 Surgical History Port-A-Cath in place Hx of colonoscopy Hx of shoulder surgery History of shoulder surgery History of prostate biopsy Social History household members: spouse Smoking Status: Former smoker Tobacco: How many years used: 20 alcohol intake: former details: was drinking 3-4 drinks a day until New '2023 substance use type: does not use what type of physical activity do you participate in: walking, running and weight training frequency: 3-4 times per week Past Medical/Surgical History Planned Operation Planned Operative Procedure(s): COLONOSCOPY Previous Hospitalizations/Surgeries HX Hospitalizations: No Any Problems With Anesthesia: No You/Your Family Experience Fever (Hyperthermia) With Anes: No Cholinesterase deficiency: No Cardiovascular Hx Hypertension: Yes Respiratory Hx Sleep Apnea: No Hx Respiratory Tract Infection/Cold (presently): No Do You Snore Loudly (louder than talking or can be heard): No Do You Often Feel Tired/ Fatigued/ Sleepy Dring Daytime?: No Has Anyone Observed You Stop Breathing During Sleep?: No Result (for STOP score): Negative Smoking Status: Former smoker Neurological Does patient have nerve stimulator: No Miscellaneous Recent Exposure to Contagious Disease: No Allergies enzalutamide (From Xtandi) Allergy (Severe, Verified 10/14/23 09:13) Rash adhesive tape Allergy (Mild, Verified 10/14/23 09:13) Rash Discharge Is Pt Admitted From a Long Term, or a Nursing Home: No After D/C, Where Do you Plan to Go: Return Home Physical Exam Narrative Right IJ port in place Const alert, oriented x3 and no apparent distress HEENT normocephalic and head/scalp atraumatic Resp normal respiratory effort Cardio regular rate GI soft to palpation and non-tender; Negative for non-distended Palpation: Negative for guarding Extremity no clubbing, cyanosis or edema Skin no rashes or lesions noted Neuro CN's II-XII intact bilaterally Psych mental status grossly normal Assessment & Plan Assessment/Plan (1) Encounter for screening for malignant neoplasm of colon: (2) Prostate CA: (3) Secondary malignant neoplasm of bone: Surgery Risks - Colonoscopy I discussed with the patient the risks of the procedure: Yes Risks Include but are not Limited To: Risks include but are not limited to: Bleeding, perforation requiring further surgery, inability to complete colonoscopy requiring barium enema.
--- NOTE | 2023-10-19 07:57 | PCM.PRE.AN2 ---
ASA Classification* ASA Classification ASA Classification: 3 Assessment & Plan Anesthesia* Anesthesia Assessment Anesthesia Assessment: Discussed sedation and/or anesthesia options, risks, benefits, and alternatives with patient/parents/legal guardian/POA. Questions invited. The patient/parents/legal guardian/POA seems to understand and agrees to proceed with anesthesia plan. Reviewed the physical assessment, medical history, allergy history and patient home medications list prior to surgery/procedure/anesthetic and documented any changes. Performed airway and anesthesia risk assessments. Anesthesia Type Anesthesia Type: MAC (*see written preanesthesia record for full assessment) Anesthesia Focused Assessment* Airway Assessment Mouth opens: >3 cm Mallampati Score: II Focused Labs Anesthesia Preop lab: CBC WBC 6.1 K/mm3 (4.4-11.0) 09/22/23 13:40 RBC 4.05 M/mm3 (4.6-6.2) L 09/22/23 13:40 Hgb 12.3 g/dL (13.0-16.5) L 09/22/23 13:40 Hct 36.4 % (40-54) L 09/22/23 13:40 Plt Count 191 K/mm3 (150-450) 09/22/23 13:40 CHEMISTRY Potassium 4.1 mmol/L (3.5-5.1) 09/22/23 13:40 Sodium 141 mmol/L (136-145) 09/22/23 13:40 BUN 21 mg/dL (7-18) H 09/22/23 13:40 Creatinine 0.91 mg/dL (0.70-1.30) 09/22/23 13:40 Glucose 102 mg/dL (74-106) 09/22/23 13:40 COAG Pre-Assessment Diagnosis/Proposed Procedure Planned Operative Procedure(s): COLONOSCOPY Anesthesia History Anesthesia History - supervisor international reservations: Anesthesia History - supervisor international reservations Hx Hospitalization No 10/19/23 07:55 Any Problems With Anesthesia No 10/19/23 07:55 Cholinesterase deficiency No 10/19/23 07:55 You/Your Family Experience No 10/19/23 07:55 fever (hyperthermia) with Relationship Recent Exposure to Contagious No 10/19/23 07:55 Disease Does patient have nerve No 10/19/23 07:55 stimulator Patient instructed to have device shut off --Does patient have Pacemaker or ICD? When Was Last Pacemaker Check QUESTION #4 FULL TEXT: You/Your Family Experience fever (hyperthermia) with Anesthesia Last Oral Intake Last Oral intake: Last Oral Intake NPO since Meds taken in AM with sips of water? Meds patient instructed to take am of surgery PONV PONV - supervisor international reservations: PONV - supervisor international reservations Female No 10/14/23 09:16 HX of Motion Sickness No 10/14/23 09:16 HX of N/V After Surgery No 10/14/23 09:16 Non-Smoker Yes 10/14/23 09:16 Duration of Surgery greater No 10/14/23 09:16 than 60 minutes Number of Risk Factors 1 10/14/23 09:16 PONV Score Low Risk 10/14/23 09:16 Height & Weight Height & Weight: Anesthesia: Height & Weight Height 5 ft 10 in 10/06/23 13:25 Respiratory Assessment Respiratory Assessment - supervisor international reservations: Respiratory Tract Infection Hx - supervisor international reservations Hx Respiratory Tract Infection No 10/19/23 07:55 STOP Sleep Apnea STOP Sleep Apnea - supervisor international reservations: STOP Sleep Apnea - supervisor international reservations Hx Hypertension Yes 10/19/23 07:55 Hx Sleep Apnea No 10/19/23 07:55 CPAP BIPAP Do you snore loudly (louder No 10/19/23 07:55 than talking or can be heard Do you often feel tired/ No 10/19/23 07:55 fatigued/ sleepy during daytime? Has anyone observed you stop No 10/19/23 07:55 breathing during sleep? STOP Results Negative 10/19/23 07:55 QUESTION #5 FULL TEXT : Do you snore loudly (louder than talking or can be heard through closed doors)? 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 Specify any problems Hx of Preganancy in last 3 N/A 10/14/23 09:16 Months Nurse Filling Out Transfusion [id number] 10/14/23 09:16 & Questions: Date: 10/14/23 10/14/23 09:16 Time: 09:20 10/14/23 09:16 Patient unable to answer at this time (ie. confused, unrespo /Reproduction History /Reproductive History - supervisor international reservations: /Reproductive Hx- supervisor international reservations Hx Now Gestational Age (in weeks): EDC: Hx Hx Para Hx Section SAB No 08/04/23 12:24 PFS Medical History Family history of colon cancer in mother Hx of colonic polyps Encounter for chemotherapy management Alcohol use Arthritis Former smoker History of edema History of echocardiogram History of stress test Cardiology follow-up encounter History of irregular heartbeat Encounter for education Secondary malignant neoplasm of bone Ventricular premature depolarization Prostate CA Home Medications ?Medication ?Instructions ?Recorded ?Last Taken ?Type metoprolol succinate 25 mg 12.5 mg PO BID 06/09/23 06/21/23 History tablet,extended release 24 hr dexamethasone 4 mg tablet 8 mg (2 x 4 mg) PO .COMPLEX #12 06/14/23 Unknown Rx tabs lidocaine-prilocaine 2.5 %-2.5 % 1 applic topical ONCE PRN port 06/14/23 Unknown Rx topical cream access 30 days #30 grams ondansetron 8 mg disintegrating 8 mg PO Q8H PRN nausea and 06/14/23 Unknown Rx tablet vomiting #30 tabs darolutamide 300 mg tablet (Nubeqa) 600 mg PO BID 07/01/23 Unknown History Allergy/AdvReac Type Severity Reaction Status Date / Time enzalutamide (From Xtandi) Allergy Severe Rash Verified 10/14/23 09:13 adhesive tape Allergy Mild Rash Verified 10/14/23 09:13 Family History Brother Cancer prostate, kidney Myocardial infarction, Onset Age: 66 Mother Colon cancer Dx in 60's, Partial Colectomy x2 Sister Multiple sclerosis Father Myocardial infarction, Onset Age: 62 Surgical History Port-A-Cath in place Hx of colonoscopy Hx of shoulder surgery History of shoulder surgery History of prostate biopsy Social History household members: spouse Smoking Status: Former smoker Tobacco: How many years used: 20 alcohol intake: former details: was drinking 3-4 drinks a day until New 's 2023 substance use type: does not use what type of physical activity do you participate in: walking, running and weight training frequency: 3-4 times per week Review of Systems (Anesthesia) ROS Narrative System reviewed and no additional complaints, except as documented.
[2023-10-19] MEDS: Lactated Ringers 1,000 ML 15 ML IV (08:10)
--- NOTE | 2023-10-19 09:16 | OP.COLON_ITS ---
Patient Name: Dexter Krishnan Procedure Date: 10/19/2023 8:43 AM Date of : 1960 Age: 63 Procedure: Colonoscopy Indications: Colon cancer screening in patient at increased risk: Colorectal cancer in mother Providers: Lacy Buck MD Medicines: Monitored Anesthesia Care Patient Profile: This is a 63 year old male. Last Colonoscopy: 6 years ago. Complications: No immediate complications. Procedure: Pre-Anesthesia Assessment: - Prior to the procedure, a History and Physical was performed, and patient medications and allergies were reviewed. The patient's tolerance of previous anesthesia was also reviewed. The risks and benefits of the procedure and the sedation options and risks were discussed with the patient. All questions were answered, and informed consent was obtained. Prior Anticoagulants: The patient has taken no anticoagulant or antiplatelet agents. ASA Grade Assessment: Per anesthesia. After reviewing the risks and benefits, the patient was deemed in satisfactory condition to undergo the procedure. After I obtained informed consent, the scope was passed under direct vision. Throughout the procedure, the patient's blood pressure, pulse, and oxygen saturations were monitored continuously. The Colonoscope was introduced through the anus and advanced to the cecum, identified by the appendiceal orifice, ileocecal valve and palpation. The colonoscopy was performed without difficulty. The patient tolerated the procedure well. The quality of the bowel preparation was good. Scope In: 8:59:08 AM Scope Withdrawal Time 0 hours 7 minutes 59 seconds Scope Out: 9:12:24 AM Total Procedure Duration Time 0 hours 13 minutes 16 seconds Findings: The perianal and digital rectal examinations were normal. The entire examined colon appeared normal on direct and retroflexion views. Impression: - The entire examined colon is normal on direct and retroflexion views. - No specimens collected. Recommendation: - Discharge patient to home. - Resume previous diet. - Continue present medications. - Repeat colonoscopy in 5 years for screening purposes. Procedure Code(s): --- Professional --- G0105, PT, Colorectal cancer screening; colonoscopy on individual at high risk Diagnosis Code(s): --- Professional --- Z80.0, Family history of malignant neoplasm of digestive organs CPT copyright 2021 [employer]. All rights reserved. The codes documented in this report are preliminary and upon is manager review may be revised to meet current compliance requirements. MD Lacy Yeboah MD 10/19/2023 9:15:36 AM This report has been signed electronically. Number of Addenda: 0 Note Initiated On: 10/19/2023 8:43 AM
--- NOTE | 2023-10-19 09:16 | OP.CCLET_ITS ---
10/19/2023 Austin Cummings Re : Colonoscopy procedure for Dexter Krishnan Dear Emiliano This procedure was performed on Thursday, October 19, 2023. My impressions and recommendations are as follows: Impressions : - The entire examined colon is normal on direct and retroflexion views. - No specimens collected. Recommendations : - Discharge patient to home. - Resume previous diet. - Continue present medications. - Repeat colonoscopy in 5 years for screening purposes. My findings are described in the full procedure note, which is enclosed. If I can be of further assistance, please feel free to contact me at Doctor phone number(s): , Work: . Sincerely, MD Lacy Yeboah MD 10/19/2023 9:15:36 AM This report has been signed electronically.
--- NOTE | 2023-10-19 09:19 | PCM.POST.ANE ---
Anesthesia: Postop Eval I Current Vital Signs Temperature: 97.9 F Pulse Rate: 78 Blood Pressure: 132/117 Respiratory Rate: 20 Pulse Ox: 100 Oxygen Delivery Method: Room Air Assessment Airway patent: Yes Spontaneous unlabored respirations: Yes Mental status: Awake and Calm nausea: No Vomiting: No Anesthesia Complication: No Fluid Hydration Crystalloid volume administer (ml): 400 Total IV fluid infused: 400 Progress Note Anesthesia document: Postop Eval 1 completed: Yes
[2023-10-19] MEDS: 0.9 % NaCl (Sterile) Posiflush 10 mL IV (09:46)
--- NOTE | 2023-10-19 09:50 | POSTOPAN2_ITS ---
Anesthesia Postop Eval I Sum Postop Eval Completion status Anesthesia document: Postop Eval 1 completed: Yes Anesthesia Postop Eval I Summary Anesthesia Postop Eval I Summary: Anesthesia Postop Eval I: Assessment Summary Airway patent Yes 10/19/23 09:20 [email or web address] Spontaneous unlabored Yes 10/19/23 09:20 [email or web address] respirations Mental status Awake,Calm 10/19/23 09:20 [email or web address] nausea No 10/19/23 09:20 [email or web address] Vomiting No 10/19/23 09:20 [email or web address] Anesthesia Postop Eval I: Fluid Summary Crystalloid volume administer 400 10/19/23 09:20 [email or web address] (ml) Colloids volume administered ( ml) Blood Product volume administered (ml) Total IV fluid infused 400 10/19/23 09:20 [email or web address] Anesthesia Postop Eval I: Summary Notes Anesthesia Complication No 10/19/23 09:20 [email or web address] Anesthesia Complication Comment: Post-operative progress note Anesthesia: Postop Eval II Evaluation Mental status: Awake Pain Level: 0 nausea: No Vomiting: No
--- NOTE | 2023-10-19 09:50 | PCM.POSTANE2 ---
Anesthesia Postop Eval I Sum Postop Eval Completion status Anesthesia document: Postop Eval 1 completed: Yes Anesthesia Postop Eval I Summary Anesthesia Postop Eval I Summary: Anesthesia Postop Eval I: Assessment Summary Airway patent Yes 10/19/23 09:20 [email or web address] Spontaneous unlabored Yes 10/19/23 09:20 [email or web address] respirations Mental status Awake,Calm 10/19/23 09:20 [email or web address] nausea No 10/19/23 09:20 [email or web address] Vomiting No 10/19/23 09:20 [email or web address] Anesthesia Postop Eval I: Fluid Summary Crystalloid volume administer 400 10/19/23 09:20 [email or web address] (ml) Colloids volume administered ( ml) Blood Product volume administered (ml) Total IV fluid infused 400 10/19/23 09:20 [email or web address] Anesthesia Postop Eval I: Summary Notes Anesthesia Complication No 10/19/23 09:20 [email or web address] Anesthesia Complication Comment: Post-operative progress note Anesthesia: Postop Eval II Evaluation Mental status: Awake Pain Level: 0 nausea: No Vomiting: No
== END 2023-10-19 10:05 | disposition home or self-care (01) ==
LOC: EN 07:26 → AC 07:27
PROVIDERS: Visit Provider Surgery
PROC: 0DJD8ZZ Inspection of Lower Intestinal Tract, Via Natural or Artificial Opening Endoscopic (ICD-10-PCS; CPT 45378; principal; 2023-10-19 08:55)
DX: Z12.11 Encounter for screening for malignant neoplasm of colon (principal); C79.51 Secondary malignant neoplasm of bone; C61 Malignant neoplasm of prostate; Z86.010 Personal history of colon polyps; Z87.891 Personal history of nicotine dependence; Z80.0 Family history of malignant neoplasm of digestive organs; I10 Essential (primary) hypertension; Z92.21 Personal history of antineoplastic chemotherapy; Z79.899 Other long term (current) drug therapy
CPT/HCPCS: 45378; J7120; A4216; J2405

== ENCOUNTER → 2023-10-27 | Outpatient (CLI) | payer BC, SELFPAY ==
--- NOTE | 2023-10-27 07:25 | NM_ITS ---
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 WHOLE BODY 99m Tc MDP RADIONUCLIDE BONE SCINTIGRAPHY COMPARISON: Previous whole body bone scintigraphy study dated 04/12/2023 FINDINGS: Following the intravenous administration of 27.0 mCi of 99m Tc MDP, whole body bone images reveal: 1. Increased tracer uptake remains apparent in the intertrochanteric aspect of the right proximal femur, the left ischium. 2. Facilitated uptake is redemonstrated in the sternoclavicular compartments of both shoulders, the bilateral wrists, the acromioclavicular compartment of the right shoulder, the knees bilaterally, the dorsal medial compartments of both ankles, the upper cervical spine posteriorly on the right. 3. The remaining skeletal structures are scintigraphically unremarkable with normal-appearing renal images and urinary bladder activity identified. The previously identified additional osseous foci noted on the examination dated 04/12/2023 are not apparent on the present examination. NM/Bone Scan Whole Body IMPRESSION: 1. 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 Intensity of uptake is decreased on the present examination. 2. Degenerative arthritis appears evident in the bilateral shoulder and wrist articulations, both knees, right-left ankles and upper cervical spine. 3. There is interval resolution of all additional prior defined skeletal foci. 4. 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 There is a current complete response with resolution of all prior defined skeletal foci. Electronically Signed: Stephane Gutierrez DO at 13:12 EDT ,
== END | disposition home or self-care (01) ==
LOC: NM 07:22
PROVIDERS: Referring Provider Internal Medicine Hematology & Oncology; Visit Provider Internal Medicine Hematology & Oncology
DX: C61 Malignant neoplasm of prostate (principal); C79.51 Secondary malignant neoplasm of bone
CPT/HCPCS: 78306; A9503

== ENCOUNTER → 2024-04-18 | Outpatient (CLI) | payer MEDICARE, SELFPAY ==
--- NOTE | 2024-04-18 08:17 | NM_ITS ---
PROCEDURE: BONE SCAN WHOLE BODY REASON FOR EXAM: HISTORY OF PROSTATE CANCER, STAGE IV. TECHNIQUE: Whole-body bone scan with anterior and posterior views. RADIOPHARMACEUTICAL: 27.3 mCi Technetium-99m MDP IV COMPARISON: CORRELATION WITH EXISTING RELEVANT IMAGING STUDIES (i.e. x-ray, MRI, CT, etc.): WHOLE-BODY RADIONUCLIDE BONE SCAN DATED 10/27/2023. FINDINGS: Bones: There is good uptake of the radiopharmaceutical. Increased tracer uptake is redemonstrated in the intertrochanteric region of the right hip in the left ischium. Previously described areas of facilitated uptake are redemonstrated and stable. No new focal or diffuse areas of increased or decreased tracer uptake. Kidneys: Normal activity is identified at both kidneys. NM/Bone Scan Whole Body IMPRESSION: STABLE FINDINGS WHEN COMPARED TO THE EARLIER STUDY OF 10/27/2023. NO NEW AREAS OF METASTATIC DISEASE. Reading Location: [facility]
== END | disposition home or self-care (01) ==
PROVIDERS: Referring Provider Nurse Practitioner Family; Visit Provider Nurse Practitioner Family
DX: C61 Malignant neoplasm of prostate (principal); C79.51 Secondary malignant neoplasm of bone
CPT/HCPCS: 78306; A9503; A4216

== ENCOUNTER → 2024-10-24 | Outpatient (CLI) | payer MEDICARE, SELFPAY ==
--- NOTE | 2024-10-24 09:00 | NM_ITS ---
PROCEDURE: BONE SCAN WHOLE BODY 10/24/2024 REASON FOR EXAM: Metastatic prostate cancer. TECHNIQUE: Whole-body bone scan with anterior and posterior views. Imaging at 3.5 hours. RADIOPHARMACEUTICAL: 27 mCi Technetium-99m MDP IV COMPARISON: Bone scan 04/18/2024. Bone scan 10/27/2023 FINDINGS: Bones: Redemonstration of increased radiotracer activity within proximal right femur and right ischium. Additionally there is increased radiotracer activity visualized in left ischium and inferior pubic ramus, these findings are more conspicuous when compared to prior study. There is increased radiotracer activity within bilateral shoulder joint, sternoclavicular joints, bilateral elbows, bilateral hands, bilateral knee joints and bilateral feet which likely represent degenerative changes. Kidneys: Tracer activity is visualized in bilateral kidneys. NM/Bone Scan Whole Body IMPRESSION: 1. Persistent increased radiotracer activity within right proximal femur and in tertrochanteric region. There is increased activity visualized within left ischium and inferior pubic bone which is more c onspicuous when compared to prior study. These findings are consistent with increased osteoblastic activity related to patient underlying malignancy. Attention on follow-up imaging is recommended. No new areas of focal uptake is visualized. 2. Increased tracer activity in multiple joints as mentioned likely representin g degenerative changes. Reading Location: [id number]
== END | disposition home or self-care (01) ==
PROVIDERS: Referring Provider Nurse Practitioner Family; Visit Provider Nurse Practitioner Family
DX: C61 Malignant neoplasm of prostate (principal); C79.51 Secondary malignant neoplasm of bone
CPT/HCPCS: 78306; A9503